=== PATIENT | male | born 1965 | race Caucasian/White ===

== ENCOUNTER → 2017-09-10 | Outpatient (CLI) | payer BC ==
--- NOTE | 2017-09-10 11:28 | FL ---
Modified barium swallow. HISTORY: Dysphagia. Modified barium swallow was performed with the department of speech pathology. The patient was prese nted with various consistencies of barium. There is no evidence for aspiration or penetration. Full report is to follow from the department of speech pathology. Impression: Normal study.
== END | disposition home or self-care (01) ==
LOC: RADFLMAIN 10:54
PROVIDERS: ATTEND Internal Medicine Gastroenterology
DX: R13.10 Dysphagia, unspecified (principal)
CPT/HCPCS: 74230

== ENCOUNTER → 2017-10-26 | Outpatient (CLI) | payer BC ==
--- NOTE | 2017-10-26 15:57 | CT ---
EXAMINATION TYPE: CT chest wo con DATE OF EXAM: 10/26/2017 COMPARISON: NONE HISTORY: Severe persistent asthma and cough CT DLP: 1100 mGycm, Automated exposure control for dose reduction was used. CONTRAST: None TECHNIQUE: Axial images were obtained at 1 mm thick sections at 10 mm intervals. This will limit po rtions of the examination which may not be visualized within the [id number]. Images were obtained in the prone and supine views. Supine views were obtained in both inspiration and expiration per the referring physician request. Some motion artifact due to respiratory motion is present on the expira tion views. FINDINGS: Portion of the thyroid visualized is normal. No suspicious lung nodules or focal infiltrat es are present. No enlarged mediastinal or hilar adenopathy is evident. The ascending aorta diameter at the level o f the main pulmonary artery is 3.3 cm. The main pulmonary artery diameter at the bifurcation is 2.9 cm. No suspicious infiltrates are evident. No obvious masses are evident. No bronchiectasis is evident. L nomi pavon appear clear. Limited CT sections are obtained through the upper abdomen. Abdomen is essentially unremarkable. IMPRESSIONS: 1. Normal High Resolution Chest CT. No significant change between prone and supine or inspiration and expiration imaging is evident.
== END | disposition home or self-care (01) ==
LOC: RADCTMAIN 14:35
PROVIDERS: ATTEND Internal Medicine
DX: J45.51 Severe persistent asthma with (acute) exacerbation (principal); R05 Cough
CPT/HCPCS: 71250

== ENCOUNTER 2019-03-31 22:59 | Emergency (ER) | payer BC ==
[2019-03-31 23:04] VITALS: BP 167/93; PULSE 78; RESP 16; TEMP 97.5
[2019-03-31] MEDS ORDERED: LIDOCAINE VISCOUS 2% 15 ML CUP MUCOUS MEM ONE (23:52)
--- NOTE | 2019-04-01 00:36 | ED ---
General Adult HPI - General Chief complaint: Skin/Abscess/Foreign Body Stated complaint: Food stuck in throat Time Seen by Provider: 03/31/19 23:18 Source: patient Mode of arrival: ambulatory Limitations: no limitations - History of Present Illness Initial comments: Patient is a 53-year-old male presents emergency Department with a chief complaint of a daly pit stuck in his throat. Patient reports eating a daly half Hour ago when he swallowed the patient and complains of a discomfort in his throat. Patient reports he is able to swallow liquids without problems. Patient denies pain, changes in voice, drooling, dyspnea or dysphagia. Patient denies chest pain, chest tightness, shortness of breath, nausea, vomiting. - Related Data Home Medications Medication Instructions Recorded Confirmed ALPRAZolam [Xanax] 0.5 mg PO TID PRN 08/14/17 03/31/19 Tadalafil [Cialis] 5 mg PO ONCE PRN 08/14/17 03/31/19 Ciclesonide [Alvesco] 1 puff INHALATION RT-BID 03/31/19 03/31/19 Fluticasone Propionate [Flovent 1 puff INHALATION RT-DAILY 03/31/19 03/31/19 Hfa 44 mcg] Losartan Potassium 50 mg PO DAILY 03/31/19 03/31/19 Tiotropium [place] [Spiriva] 1 cap INHALATION RT-DAILY 03/31/19 03/31/19 amLODIPine [Norvasc] 5 mg PO DAILY 03/31/19 03/31/19 Allergies Allergy/AdvReac Type Severity Reaction Status Date / Time No Known Allergies Allergy Verified 03/31/19 23:29 Review of Systems ROS Statement: Those systems with pertinent positive or pertinent negative responses have been documented in the HPI. ROS Other: All systems not noted in ROS Statement are negative. Past Medical History Past Medical History: Asthma, GERD/Reflux Additional Past Medical History / Comment(s): "feels like things get stuck in my throat" History of Any Multi-Drug Resistant Organisms: None Reported Past Surgical History: Orthopedic Surgery Additional Past Surgical History / Comment(s): knee Past Anesthesia/Blood Transfusion Reactions: No Reported Reaction Past Psychological History: Anxiety Smoking Status: Former smoker - Past Family History Mother Family Medical History: No Reported History General Exam - General Exam Comments Initial Comments: General: Well-developed well-nourished distress HEENT: Normocephalic/atraumatic, PERLL, pharynx erythema, swallowing well, EAC no erythema, no exudates, TM clear, no cervical lymph nodes, unable to visualize foreign bodies in the oropharynx. Neck: Supple, nontender, trachea midline Chest/Lungs: Normal respirations, no signs of respiratory distress clear to auscultation bilaterally no wheezes, rales, rhonchi Cardiac: Regular rate and rhythm, normal S1-S2, no murmurs rubs or gallops Abdomen/GI: Soft nontender, bowel sounds equal or quadrant x4, no guarding, no rebound no CVA tenderness Musculoskeletal: Nontender, full range of motion, no edema, strength equal bilaterally Skin: Warmth, no rashes or lesions, no cyanosis or diaphoresis Neurologic: AAO x 3, CN 2-12 intact, Psychiatric: Mood and affect normal, judgment normal Limitations: no limitations Course Vital Signs 03/31/19 23:00 Temperature 97.5 F L Pulse Rate 78 Respiratory 16 Rate Blood Pressure 167/93 O2 Sat by Pulse 99 Oximetry Medical Decision Making - Medical Decision Making Patient is a 53-year-old male presenting to emergency Department with a chief complaint of swallowing a tree.. I was unable to detect the foreign body on physical examination. Patient is able to swallow liquids and food. Abdomen the patient drink water and eat applesauce without issues. On physical examination patient does not have any wheezing bilaterally. Patient denies any dyspnea cough or shortness of breath. Patient was offered viscous lidocaine but declined. At this point patient will be discharged and advised to follow up with GI for foreign body removal. I suspect the foreign body to be in the esophagus at this point. Strict return parameters were thoroughly discussed with patient was understanding and agreeable. Case discussed with physician. Disposition Clinical Impression: Swallowed foreign body Disposition: HOME SELF-CARE Condition: Stable Instructions (If sedation given, give patient instructions): Esophageal Foreign Body (ED) Additional Instructions: Please follow with the GI specialist. Please return to emergency department if symptoms worsen. Is patient prescribed a controlled substance at d/c from ED?: No Referrals: Blayne Tinoco MD [Primary Care Provider] - 1-2 days Mary Marti MD [STAFF PHYSICIAN] - 1-2 days Time of Disposition: 00:59
== END 2019-04-01 01:20 | disposition home or self-care (01) ==
LOC: EC 22:59
DX: T17.228A Food in pharynx causing other injury, initial encounter (principal); J45.909 Unspecified asthma, uncomplicated; Z87.891 Personal history of nicotine dependence; Z53.29 Procedure and treatment not carried out because of patient's decision for other reasons; Z79.51 Long term (current) use of inhaled steroids; Z79.899 Other long term (current) drug therapy
CPT/HCPCS: 99283

== ENCOUNTER 2020-01-09 03:30 | Emergency (ER) | payer BC ==
[2020-01-09 03:35] VITALS: RESP 18; TEMP 97.7
--- NOTE | 2020-01-09 03:48 | ED ---
Chest Pain HPI - General Chief Complaint: Chest Pain Stated Complaint: Chest Pain Time Seen by Provider: 01/09/20 03:46 Source: patient, EMS Mode of arrival: EMS Limitations: no limitations - History of Present Illness Initial Comments: This patient is 54-year-old man who presents to be evaluated for chest pain. The patient states that it initially had started around 10 PM when he lifted a chair. He has sharp pain in the upper chest. I he did take some Tylenol when the pain started. He states that after a bit of time it was better and he was able to go to sleep but then the pain woke him again. I'll and the pain recurred and was severe she called EMS to transport him here. MD Complaint: chest pain Onset/Timin -: hour(s) Onset: other Pain Location: substernal Pain Radiation: LUE Severity: severe Quality: sharp Consistency: intermittent Improves With: nothing Worsens With: nothing Treatments Prior to Arrival: none - Related Data On Oral Contraceptives: No Home Medications Medication Instructions Recorded Confirmed ALPRAZolam [Xanax] 0.5 mg PO TID PRN 08/14/17 03/31/19 Tadalafil [Cialis] 5 mg PO ONCE PRN 08/14/17 03/31/19 Ciclesonide [Alvesco] 1 puff INHALATION RT-BID 03/31/19 03/31/19 Fluticasone Propionate [Flovent 1 puff INHALATION RT-DAILY 03/31/19 03/31/19 Hfa 44 mcg] Losartan Potassium 50 mg PO DAILY 03/31/19 03/31/19 Tiotropium [place] [Spiriva] 1 cap INHALATION RT-DAILY 03/31/19 03/31/19 amLODIPine [Norvasc] 5 mg PO DAILY 03/31/19 03/31/19 Allergies Allergy/AdvReac Type Severity Reaction Status Date / Time No Known Allergies Allergy Verified 03/31/19 23:29 Review of Systems ROS Statement: Those systems with pertinent positive or pertinent negative responses have been documented in the HPI. ROS Other: All systems not noted in ROS Statement are negative. Constitutional: Denies: fever, chills Respiratory: Denies: cough, dyspnea Cardiovascular: Reports: as per HPI, chest pain. Denies: palpitations, orthopnea, edema, syncope Gastrointestinal: Denies: abdominal pain, nausea, vomiting Genitourinary: Denies: dysuria, hematuria Musculoskeletal: Denies: back pain Skin: Denies: rash Neurological: Denies: headache, weakness, numbness EKG Findings - EKG Results: EKG: interpreted by DORIAN CASAS, sinus rhythm (Rate 79 bpm), normal axis, normal QRS, normal ST/T - IN, Pacemaker, Normal: Normal tracing: normal tracing Past Medical History Past Medical History: Asthma, GERD/Reflux Additional Past Medical History / Comment(s): "feels like things get stuck in my throat" History of Any Multi-Drug Resistant Organisms: None Reported Past Surgical History: Orthopedic Surgery Additional Past Surgical History / Comment(s): knee Past Anesthesia/Blood Transfusion Reactions: No Reported Reaction Past Psychological History: Anxiety Smoking Status: Former smoker Past Alcohol Use History: None Reported Past Drug Use History: None Reported - Past Family History Mother Family Medical History: No Reported History General Exam Limitations: no limitations General appearance: alert, in no apparent distress Head exam: Present: atraumatic, normocephalic Eye exam: Present: normal appearance. Absent: scleral icterus, conjunctival injection ENT exam: Present: normal oropharynx Neck exam: Present: normal inspection Respiratory exam: Present: normal lung sounds bilaterally. Absent: respiratory distress, wheezes, rales, rhonchi, stridor Cardiovascular Exam: Present: regular rate, normal rhythm, normal heart sounds. Absent: systolic murmur, diastolic murmur, rubs, gallop GI/Abdominal exam: Present: soft. Absent: distended, tenderness, guarding, rebound, rigid, mass Extremities exam: Present: normal inspection, normal capillary refill. Absent: pedal edema, calf tenderness Back exam: Present: normal inspection. Absent: CVA tenderness (R), CVA tenderness (L) Neurological exam: Present: alert Skin exam: Present: warm, dry, intact, normal color. Absent: rash Course Vital Signs 01/09/20 01/09/20 01/09/20 03:32 03:34 03:35 Temperature 97.7 F Pulse Rate 76 Pulse Rate [ 80 Photoflash Powder Mixer ] Respiratory 18 Rate Blood Pressure 150/63 O2 Sat by Pulse 98 100 Oximetry 01/09/20 01/09/20 01/09/20 04:30 05:00 05:30 Temperature Pulse Rate 71 71 61 Pulse Rate [ Photoflash Powder Mixer ] Respiratory 18 18 18 Rate Blood Pressure 119/82 118/76 136/73 O2 Sat by Pulse 98 97 97 Oximetry 01/09/20 01/09/20 06:00 06:30 Temperature Pulse Rate 65 68 Pulse Rate [ Photoflash Powder Mixer ] Respiratory 18 18 Rate Blood Pressure 139/68 127/74 O2 Sat by Pulse 98 98 Oximetry Chest Pain MDM - MDM Patient's 54-year-old man presenting to be evaluated for chest pain that did have some typical features though also atypical. I did recommend admission for serial cardiac enzymes, telemetry monitoring, and cardiology consultation, the patient was concerned as he did have young daughters at home. He did agree to stay for 2 sets of cardiac enzymes and agrees to follow-up to have cardiology consultation. He understands he needs to return should chest pain recur or should any other symptoms develop or should he not feel well in anyway. Disposition Clinical Impression: Chest pain Disposition: HOME SELF-CARE Condition: Fair Instructions (If sedation given, give patient instructions): Chest Pain (ED) Is patient prescribed a controlled substance at d/c from ED?: No Referrals: Blayne Tinoco MD [Primary Care Provider] - 1-2 days
[2020-01-09 03:50] LABS: Basophils % (A) 0 %; Eosinophils # (A) 0.1 k/uL (0-0.7); Eosinophils % (A) 2 %; HCT 42.6 % (39.0-53.0); HGB 13.8 gm/dL (13.0-17.5); Lymphocytes # (A) 2.1 k/uL (1.0-4.8); Lymphocytes % (A) 31 %; MCH 30.5 pg (25.0-35.0); MCHC 32.3 g/dL (31.0-37.0); MCV 94.3 fL (80.0-100.0); Mean Platelet Volume 7.5; Monocytes # (A) 0.4 k/uL (0-1.0); Monocytes % (A) 6 %; Neutrophils # (A) 3.8 k/uL (1.3-7.7); Neutrophils % (A) 57 %; Platelet Count 268 k/uL (150-450); RBC 4.51 m/uL (4.30-5.90); RDW 12.9 % (11.5-15.5); WBC 6.7 k/uL (3.8-10.6)
[2020-01-09 04:03] LABS: ALT 48 U/L (4-49); AST 44 U/L (17-59); African American GFR (CKD) >90 (>60 ml/min/1.73 sqM); Albumin 4.5 g/dL (3.5-5.0); Alkaline Phosphatase 66 U/L (38-126); Anion Gap 6 mmol/L; Blood Urea Nitrogen 18 mg/dL (9-20); Calcium 9.4 mg/dL (8.4-10.2); Carbon Dioxide 27 mmol/L (22-30); Chloride 104 mmol/L (98-107); Glucose 113 mg/dL (74-99); Magnesium 2.2 mg/dL (1.6-2.3); Non-African American GFR(CKD) >90 (>60 ml/min/1.73 sqM); Potassium 4.2 mmol/L (3.5-5.1); Sodium 137 mmol/L (137-145); Total Bilirubin 0.4 mg/dL (0.2-1.3); Total Protein 7.4 g/dL (6.3-8.2)
--- NOTE | 2020-01-09 04:05 | XR ---
EXAMINATION TYPE: XR chest 2V DATE OF EXAM: 01/09/2020 COMPARISON: October 02, 2017 HISTORY: Chest pain. Cough. TECHNIQUE: FINDINGS: Heart and mediastinum are normal. Lungs are clear. Diaphragm is normal. Bony thorax appears normal. There are chest leads. IMPRESSION: Normal chest. No change.
[2020-01-09] MEDS ORDERED: MAG HYDROX/AL HYDROX/SIMETH 30 ML, HYOSCYAMINE ELIXIR 10 ML, LIDOCAINE VISCOUS 2% 10 ML PO STA ×3 (04:14)
[2020-01-09 04:15] LABS: Prothrombin Time 10.3 sec (9.0-12.0)
[2020-01-09 04:18] LABS: Partial Thromboplastin Time 21.5 sec (22.0-30.0)
[2020-01-09 06:41] VITALS: BP 127/74; PULSE 68
== END 2020-01-09 07:57 | disposition home or self-care (01) ==
LOC: EC 03:30
DX: R07.9 Chest pain, unspecified (principal); J45.909 Unspecified asthma, uncomplicated; Z87.891 Personal history of nicotine dependence; Z79.51 Long term (current) use of inhaled steroids
CPT/HCPCS: 36415; 71046; 80053; 83735; 84484; 85025; 85610; 85730; 93005; 99285

== ENCOUNTER → 2020-02-13 | Outpatient (CLI) | payer BC ==
--- NOTE | 2020-02-14 07:30 | XR ---
EXAMINATION TYPE: XR foot complete RT DATE OF EXAM: 02/13/2020 CLINICAL HISTORY: pain TECHNIQUE: Frontal, lateral and oblique images of the right foot are obtained. COMPARISON: None. FINDINGS: There is no acute fracture/dislocation evident. The joint spaces appear within normal villaseñor its. The overlying soft tissue appears unremarkable. IMPRESSION: There is no acute fracture or dislocation. ICD 10 NO FRACTURE, INITIAL EVALUATION
--- NOTE | 2020-02-14 07:31 | XR ---
EXAMINATION TYPE: XR hand complete bilateral DATE OF EXAM: 02/13/2020 CLINICAL HISTORY: pain TECHNIQUE: Frontal, lateral and oblique images of the right hand are obtained. COMPARISON: None. FINDINGS: There is no acute fracture/dislocation evident. The joint spaces appear within normal limi ts. The overlying soft tissue appears unremarkable. IMPRESSION: There is no acute fracture or dislocation ICD 10 NO FRACTURE, INITIAL EVALUATION EXAMINATION TYPE: XR hand complete bilateral DATE OF EXAM: 02/13/2020 CLINICAL HISTORY: pain TECHNIQUE: Frontal, lateral and oblique images of the left hand are obtained. COMPARISON: None. FINDINGS: There is no acute fracture/dislocation evident. The joint spaces appear within normal limi ts. The overlying soft tissue appears unremarkable. IMPRESSION: There is no acute fracture or dislocation. ICD 10 NO FRACTURE, INITIAL EVALUATION
== END | disposition home or self-care (01) ==
LOC: RADXRMAIN 17:18
PROVIDERS: ATTEND Internal Medicine
DX: M79.671 Pain in right foot (principal); M19.90 Unspecified osteoarthritis, unspecified site

== ENCOUNTER → 2020-07-23 | Outpatient (CLI) | payer BC | END | disposition home or self-care (01) | LOC: LABWHC1 14:20 | PROVIDERS: ATTEND Internal Medicine | DX: Z20.828 Contact with and (suspected) exposure to other viral communicable diseases (principal) | CPT/HCPCS: U0003; C9803 ==

== ENCOUNTER → 2020-12-05 | Outpatient (CLI) | payer BC ==
--- NOTE | 2020-12-06 05:25 | MR ---
EXAMINATION TYPE: MR foot RT wo/w con DATE OF EXAM: 12/05/2020 COMPARISON: HISTORY: Pain in right foot, swelling on ball of right foot, now mass like ball. CONTRAST: Standard multiplanar, multisequence MRI departmental protocol utilizing 10 mL intravenous Gadavist ga dolinium contrast. There is a rounded oval-shaped fluid signal mass at the plantar aspect of the first MP joint. This me asures 15 x 13 x 4 mm and is consistent with a synovial cyst. The metatarsals are intact. There is no evidence of a fracture. The toes appear intact. There is ria r spurring at the first MP joint. Flexor tendons of the foot appear intact. IMPRESSION: Subcutaneous fluid signal mass at the plantar aspect of the first MP joint is consistent with a synov ial cyst. 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 No fracture seen. There is a mild effusion of the first MP joint also.
== END | disposition home or self-care (01) ==
LOC: RADMRIMAIN 08:00
PROVIDERS: ATTEND Internal Medicine
DX: M19.071 Primary osteoarthritis, right ankle and foot (principal); M25.474 Effusion, right foot
CPT/HCPCS: 73720; A9585

== ENCOUNTER → 2021-07-19 | Outpatient (CLI) | payer BC ==
--- NOTE | 2021-07-19 09:15 | CT ---
EXAMINATION TYPE: CT sinus wo con DATE OF EXAM: 07/19/2021 COMPARISON: Prior sinus CT June 24, 2017 HISTORY: Chronic sinusitis, recurrent sinus infections per patient. CT DLP: 588 mGycm. Automated Exposure Control for Dose Reduction was Utilized. TECHNIQUE: CT scan of the sinuses is performed without contrast, axial images are obtained, coronal r eformatted images are also reviewed. FINDINGS: The paranasal sinuses including the frontal, ethmoid, sphenoid, and maxillary sinuses bila terally are well-aerated without suspicious opacification or air-fluid levels. The ostiomeatal compl ex is patent bilaterally on the coronal images. Nasal septum is stable and slightly deviated to left of midline. Visualized portion of mastoid air cells show no abnormal opacification. The globes are intact bilate rally. Visualized brain parenchyma is unremarkable. IMPRESSION: The sinuses are clear, no significant change from prior.
== END | disposition home or self-care (01) ==
LOC: RADCTMAIN 08:36
PROVIDERS: ATTEND Otolaryngology
DX: J32.9 Chronic sinusitis, unspecified (principal)
CPT/HCPCS: 70486

== ENCOUNTER → 2021-11-28 | Outpatient (CLI) | payer BC ==
--- NOTE | 2021-11-28 11:13 | XR ---
KUB HISTORY: Microscopic hematuria Frontal KUB on 2 images, comparison previous exams KUB and CT 10/17/2015 Retained fecal debris could obscure underlying detail. No evident bowel obstruction or pneumoperitone um. No evident pathologic calcification. Degenerative disc changes are present in the visualized spin e. Lung bases are clear. IMPRESSION: Correlate for fecal stasis.
== END | disposition home or self-care (01) ==
LOC: RADXRMAIN 10:26
PROVIDERS: ATTEND Internal Medicine
DX: R31.29 Other microscopic hematuria (principal)
CPT/HCPCS: 74018

== ENCOUNTER → 2022-12-25 | Outpatient (CLI) | payer BC ==
--- NOTE | 2022-12-25 07:58 | CT ---
EXAMINATION TYPE: CT sinus wo con DATE OF EXAM: 12/25/2022 COMPARISON: 12/25/2022 HISTORY: Chronic sinusitis CT DLP: 583.[address] of the paranasal sinuses was performed in the axial and coronal planes. Bone and soft tissue settings are submitted. The paranasal sinuses demonstrate normal aeration and development. The paranasal sinuses are free of mucosal thickening or air fluid level. The osteal meatal units are patent bilaterally. The nasal septum is midline. No bony destructive changes are seen within the field of view. IMPRESSION: Normal unenhanced CT of the paranasal sinuses.
--- NOTE | 2022-12-25 08:17 | CT ---
EXAMINATION TYPE: CT iac wo con DATE OF EXAM: 12/25/2022 COMPARISON: None HISTORY: Chronic sinus infections CT DLP: 150mGycm Automated exposure control for dose reduction was used. FINDINGS: The external auditory canals are patent bilaterally. Mastoid air cells show no evidence of abnormal opacification bilaterally. The middle ear ossicles are symmetric and unremarkable. There is no evidence of suspicious surrounding soft tissue density to suggest cholesteatoma. The scutum is preserved bilaterally. The cochlea and the semicircular canals are symmetric and unremarkable. Ves tibular aqueduct and internal carotid canal appear unremarkable. Temporomandibular joints are mainta ined bilaterally. IMPRESSION: No significant abnormality seen to account for patient's symptoms.
== END | disposition home or self-care (01) ==
LOC: RADCTMAIN 07:21
PROVIDERS: ATTEND Otolaryngology
DX: J32.9 Chronic sinusitis, unspecified (principal); H92.03 Otalgia, bilateral
CPT/HCPCS: 70480; 70486

== ENCOUNTER 2023-07-31 19:50 | Emergency (ER) | payer BC ==
[2023-07-31 20:38] VITALS: TEMP 98.2
[2023-07-31 21:19] LABS: Basophils % (A) 1 %; Eosinophils # (A) 0.1 k/uL (0-0.7); Eosinophils % (A) 2 %; HCT 41.5 % (39.0-53.0); HGB 13.8 gm/dL (13.0-17.5); Lymphocytes # (A) 2.2 k/uL (1.0-4.8); Lymphocytes % (A) 31 %; MCH 31.6 pg (25.0-35.0); MCHC 33.2 g/dL (31.0-37.0); MCV 95.1 fL (80.0-100.0); Mean Platelet Volume 7.3; Monocytes # (A) 0.6 k/uL (0-1.0); Monocytes % (A) 8 %; Neutrophils # (A) 3.9 k/uL (1.3-7.7); Neutrophils % (A) 56 %; Platelet Count 318 k/uL (150-450); RBC 4.36 m/uL (4.30-5.90); RDW 12.5 % (11.5-15.5); WBC 6.9 k/uL (3.8-10.6)
[2023-07-31 21:26] LABS: ALT 21 U/L (4-49); AST 27 U/L (17-59); African American GFR (CKD) >90 (>60 ml/min/1.73 sqM); Albumin 4.4 g/dL (3.5-5.0); Alkaline Phosphatase 54 U/L (38-126); Amylase 77 U/L (30-110); Anion Gap 8 mmol/L; Blood Urea Nitrogen 22 mg/dL (9-20); Calcium 9.3 mg/dL (8.4-10.2); Carbon Dioxide 26 mmol/L (22-30); Chloride 103 mmol/L (98-107); Glucose 81 mg/dL (74-99); Lipase 130 U/L (23-300); Non-African American GFR(CKD) 88 (>60 ml/min/1.73 sqM); Potassium 3.9 mmol/L (3.5-5.1); Sodium 137 mmol/L (137-145); Total Bilirubin 0.6 mg/dL (0.2-1.3); Total Protein 7.1 g/dL (6.3-8.2)
[2023-07-31 22:19] LABS: Bacteria,Urine Rare /hpf; Mucus,Urine Few /hpf; RBC,Urine 2 /hpf (0-5); WBC,Urine <1 /hpf (0-5)
[2023-07-31 22:20] LABS: Color,Urine Yellow
[2023-07-31 22:21] LABS: Appearance,Urine Clear (Clear)
[2023-07-31 22:27] LABS: PH, Urine 6.5 (5.0-8.0); Protein,Urine Trace (Negative); Specific Gravity,Urine 1.029 (1.001-1.035)
[2023-07-31 22:28] LABS: Bilirubin,Urine Negative (Negative); Blood,Urine Negative (Negative); Glucose,Urine (UA) Negative (Negative); Ketones,Urine Trace (Negative); Nitrite,Urine Negative (Negative)
[2023-07-31 22:29] LABS: Leukocyte Esterase,Urine Negative (Negative)
--- NOTE | 2023-07-31 22:30 | ED ---
Abdominal Pain HPI - General Chief Complaint: Abdominal Pain Stated Complaint: Abd pain Time Seen by Provider: 07/31/23 22:33 Source: patient Mode of arrival: ambulatory Limitations: no limitations - History of Present Illness Initial Comments: 57-year-old male presenting to the ED with a chief complaint of abdominal pain. Patient states the day after Thanksgiving started to experience bloating abdominal pain. States bleeding has improved however states ongoing pain in the left lower abdomen. Says PCP yesterday who gave him a prescription for Pant oprazole and despite this states ongoing symptoms. No changes in bowel or bladder habits. No chest pain or shortness of breath. No other complaints. - Related Data Home Medications Medication Instructions Recorded Confirmed ALPRAZolam [Xanax] 0.5 mg PO TID PRN 08/14/17 03/31/19 tadalafiL [Cialis] 5 mg PO ONCE PRN 08/14/17 03/31/19 Ciclesonide [Alvesco] 1 puff INHALATION RT-BID 03/31/19 03/31/19 Fluticasone Propionate [Flovent 1 puff INHALATION RT-DAILY 03/31/19 03/31/19 Hfa 44 mcg] Losartan Potassium 50 mg PO DAILY 03/31/19 03/31/19 Tiotropium [place] [Spiriva] 1 cap INHALATION RT-DAILY 03/31/19 03/31/19 amLODIPine [Norvasc] 5 mg PO DAILY 03/31/19 03/31/19 Allergies Allergy/AdvReac Type Severity Reaction Status Date / Time doxycycline Allergy Rash/Hives Verified 07/31/23 20:39 Review of Systems ROS Statement: Those systems with pertinent positive or pertinent negative responses have been documented in the HPI. ROS Other: All systems not noted in ROS Statement are negative. Past Medical History Past Medical History: Asthma, GERD/Reflux Additional Past Medical History / Comment(s): "feels like things get stuck in my throat" History of Any Multi-Drug Resistant Organisms: None Reported Past Surgical History: Orthopedic Surgery Additional Past Surgical History / Comment(s): knee Past Anesthesia/Blood Transfusion Reactions: No Reported Reaction Past Psychological History: Anxiety Smoking Status: Never smoker Past Alcohol Use History: None Reported Past Drug Use History: None Reported - Past Family History Mother Family Medical History: No Reported History General Exam Limitations: no limitations General appearance: alert, in no apparent distress Eye exam: Present: normal appearance Neck exam: Present: normal inspection Respiratory exam: Present: normal lung sounds bilaterally Cardiovascular Exam: Present: regular rate, normal rhythm GI/Abdominal exam: Present: soft Extremities exam: Present: normal inspection Back exam: Present: normal inspection Neurological exam: Present: alert, oriented X3 Skin exam: Present: warm, dry Course Vital Signs 07/31/23 20:36 Temperature 98.2 F Pulse Rate 83 Respiratory 18 Rate Blood Pressure 159/89 O2 Sat by Pulse 99 Oximetry Medical Decision Making - Medical Decision Making Was pt. sent in by a medical professional or institution (, PA, HEALTH CLAIMS EXAMINER, urgent care, hospital, or long term...) When possible be specific @ -No Did you speak to anyone other than the patient for history (EMS, parent, family, police, friend...)? What history was obtained from this source @ -No Did you review nursing and triage notes (agree or disagree)? Why? @ -I reviewed and agree with nursing and triage notes Were old charts reviewed (outside hosp., previous admission, EMS record, old EKG, old radiological studies, urgent care reports/EKG's, long term records)? Report findings @ -No old charts were reviewed Differential Diagnosis (chest pain, altered mental status, abdominal pain women, abdominal pain men, vaginal bleeding, weakness, fever, dyspnea, syncope, headache, dizziness, GI bleed, back pain, seizure, CVA, palpatations, mental health, musculoskeletal)? @ -Differential Abdominal Pain Men: Appendicitis, cholecystitis, diverticulosis, ischemic bowel, pancreatitis, hepatitis, UTI, gastroenteritis, AAA, incarcerated hernia, bowel obstruction, constipation, inflammatory bowel, hepatitis, peptic ulcer disease, splenic infarction, perforated viscus, testicular torsion, this is not meant to be an all-inclusive list EKG interpreted by me (3pts min.). @ -None X-rays interpreted by me (1pt min.). @ -None done CT interpreted by me (1pt min.). @ -CT abdomen and pelvis interpreted me shows no acute finding. U/S interpreted by me (1pt. min.). @ -None done What testing was considered but not performed or refused? (CT, X-rays, U/S, labs)? Why? @ -None What meds were considered but not given or refused? Why? @ -None Did you discuss the management of the patient with other professionals (professionals i.e. DrDanielle, PA, HEALTH CLAIMS EXAMINER, lab, RT, psych nurse, director of social work, political theory professor, teacher, medical laboratory technical officer, lining caser)? Give summary @ -No Was smoking cessation discussed for >3mins.? @ -No Was critical care preformed (if so, how long)? @ -No Were there social determinants of health that impacted care today? How? (Ho melessness, low income, unemployed, alcoholism, drug addiction, transportation, low edu. Level, literacy, decrease access to med. care, longterm, rehab)? @ -No Was there de-escalation of care discussed even if they declined (Discuss DNR or withdrawal of care, Hospice)? DNR status @ -No What co-morbidities impacted this encounter? (DM, HTN, Smoking, COPD, CAD, Cancer, CVA, ARF, Chemo, Hep., AIDS, mental health diagnosis, sleep apnea, morbid obesity)? @ -None Was patient admitted / discharged? Hospital course, mention meds given and route, prescriptions, significant lab abnormalities, going to OR and other pertinent info. @ -Discharge 57-year-old male presenting to the ED with the chief complaint of abdominal pain. Laboratory studies reviewed. CBC, chemistry panel, UA, amylase, lipase unremarkable. CT abdomen and pelvis showed no acute findings. At this time vital signs stable afebrile. Patient discharged home in stable condition. Provided referral to see GI. Discussed return precautions patient verbalizes agreement. Undiagnosed new problem with uncertain prognosis? @ -No Drug Therapy requiring intensive monitoring for toxicity (Heparin, Nitro, Insulin, Cardizem)? @ -No Were any procedures done? @ -No Diagnosis/symptom? @ -Abdominal pain Acute, or Chronic, or Acute on Chronic? @ -Acute Uncomplicated (without systemic symptoms) or Complicated (systemic symptoms)? @ -Uncomplicated Side effects of treatment? @ -No Exacerbation, Progression, or Severe Exacerbation? @ -No Poses a threat to life or bodily function? How? (Chest pain, [place], [place], pneumonia, PE, COPD, DKA, ARF, appy, cholecystitis, CVA, Diverticulitis, Homicidal, Suicidal, threat to staff... and all critical care pts) @ -No - Lab Data Result diagrams: 07/31/23 21:00 07/31/23 21:00 Lab Results 07/31/23 07/31/23 07/31/23 Range/Units 21:00 21:00 21:00 WBC 6.9 (3.8-10.6) k/uL RBC 4.36 (4.30-5.90) m/uL Hgb 13.8 (13.0-17.5) gm/dL Hct 41.5 (39.0-53.0) % MCV 95.1 (80.0-100.0) fL MCH 31.6 (25.0-35.0) pg MCHC 33.2 (31.0-37.0) g/dL RDW 12.5 (11.5-15.5) % Plt Count 318 (150-450) k/uL MPV 7.3 Neutrophils % 56 % Lymphocytes % 31 % Monocytes % 8 % Eosinophils % 2 % Basophils % 1 % Neutrophils # 3.9 (1.3-7.7) k/uL Lymphocytes # 2.2 (1.0-4.8) k/uL Monocytes # 0.6 (0-1.0) k/uL Eosinophils # 0.1 (0-0.7) k/uL Basophils # 0.0 (0-0.2) k/uL Sodium 137 (137-145) mmol/L Potassium 3.9 (3.5-5.1) mmol/L Chloride 103 (98-107) mmol/L Carbon Dioxide 26 (22-30) mmol/L Anion Gap 8 mmol/L BUN 22 H (9-20) mg/dL Creatinine 0.95 (0.66-1.25) mg/dL Est GFR (CKD-EPI)AfAm >90 (>60 ml/min/1.73 sqM) Est GFR (CKD-EPI)NonAf 88 (>60 ml/min/1.73 sqM) Glucose 81 (74-99) mg/dL Plasma Lactic Acid Christopher (0.7-2.0) mmol/L Calcium 9.3 (8.4-10.2) mg/dL Total Bilirubin 0.6 (0.2-1.3) mg/dL AST 27 (17-59) U/L ALT 21 (4-49) U/L Alkaline Phosphatase 54 (38-126) U/L Total Protein 7.1 (6.3-8.2) g/dL Albumin 4.4 (3.5-5.0) g/dL Amylase 77 (30-110) U/L Lipase 130 (23-300) U/L Urine Color Yellow Urine Appearance Clear (Clear) Urine pH 6.5 (5.0-8.0) Ur Specific [place] 1.029 (1.001-1.035) Urine Protein Trace H (Negative) Urine Glucose (UA) Negative (Negative) Urine Ketones Trace (Negative) Urine Blood Negative (Negative) Urine Nitrite Negative (Negative) Urine Bilirubin Negative (Negative) Urine Urobilinogen 2.0 (<2.0) mg/dL Ur Leukocyte Esterase Negative (Negative) Urine RBC 2 (0-5) /hpf Urine WBC <1 (0-5) /hpf Urine Bacteria Rare H (None) /hpf Urine Mucus Few H (None) /hpf 07/31/23 Range/Units 21:00 WBC (3.8-10.6) k/uL RBC (4.30-5.90) m/uL Hgb (13.0-17.5) gm/dL Hct (39.0-53.0) % MCV (80.0-100.0) fL MCH (25.0-35.0) pg MCHC (31.0-37.0) g/dL RDW (11.5-15.5) % Plt Count (150-450) k/uL MPV Neutrophils % % Lymphocytes % % Monocytes % % Eosinophils % % Basophils % % Neutrophils # (1.3-7.7) k/uL Lymphocytes # (1.0-4.8) k/uL Monocytes # (0-1.0) k/uL Eosinophils # (0-0.7) k/uL Basophils # (0-0.2) k/uL Sodium (137-145) mmol/L Potassium (3.5-5.1) mmol/L Chloride (98-107) mmol/L Carbon Dioxide (22-30) mmol/L Anion Gap mmol/L BUN (9-20) mg/dL Creatinine (0.66-1.25) mg/dL Est GFR (CKD-EPI)AfAm (>60 ml/min/1.73 sqM) Est GFR (CKD-EPI)NonAf (>60 ml/min/1.73 sqM) Glucose (74-99) mg/dL Plasma Lactic Acid Christopher 0.8 (0.7-2.0) mmol/L Calcium (8.4-10.2) mg/dL Total Bilirubin (0.2-1.3) mg/dL AST (17-59) U/L ALT (4-49) U/L Alkaline Phosphatase (38-126) U/L Total Protein (6.3-8.2) g/dL Albumin (3.5-5.0) g/dL Amylase (30-110) U/L Lipase (23-300) U/L Urine Color Urine Appearance (Clear) Urine pH (5.0-8.0) Ur Specific [place] (1.001-1.035) Urine Protein (Negative) Urine Glucose (UA) (Negative) Urine Ketones (Negative) Urine Blood (Negative) Urine Nitrite (Negative) Urine Bilirubin (Negative) Urine Urobilinogen (<2.0) mg/dL Ur Leukocyte Esterase (Negative) Urine RBC (0-5) /hpf Urine WBC (0-5) /hpf Urine Bacteria (None) /hpf Urine Mucus (None) /hpf Disposition Clinical Impression: Abdominal pain Disposition: HOME SELF-CARE Condition: Good Instructions (If sedation given, give patient instructions): Abdominal Pain (ED) Additional Instructions: Please return to the Emergency Department if symptoms worsen or any other concerns. Follow up with your primary care provider and/or with GI. Is patient prescribed a controlled substance at d/c from ED?: No Referrals: Claire Haley MD [Primary Care Provider] - 1-2 days Mary Marti MD [STAFF PHYSICIAN] - 1-2 days Time of Disposition: 01:07
[2023-07-31] MEDS ORDERED: KETOROLAC 15 MG/ML 1 ML VIAL IVP STA (23:57)
--- NOTE | 2023-08-01 00:22 | CT ---
EXAM: CT Abdomen and Pelvis With Intravenous Contrast CLINICAL HISTORY: ITS.REASON CT Reason: LLQ pain TECHNIQUE: Axial computed tomography images of the abdomen and pelvis with intravenous contrast. CTDI is 18 mGy and DLP is 952.9 mGy-cm. This CT exam was performed using one or more of the following dose reduction techniques: automated exposure control, adjustment of the mA and/or kV according to patient size, and/or use of iterative reconstruction technique. COMPARISON: No relevant prior studies available. FINDINGS: Lung bases: Unremarkable. No mass. No consolidation. ABDOMEN: Liver: Unremarkable. No focal hepatic lesion. Gallbladder and bile ducts: Unremarkable. No calcified stones. No ductal dilation. Pancreas: Unremarkable. No mass. No ductal dilation. Spleen: Unremarkable. No splenomegaly. Adrenals: Unremarkable. No mass. Kidneys and ureters: Unremarkable. No hydronephrosis or delayed nephrogram. Stomach and bowel: Mild fecal retention, correlate for constipation. No small bowel obstruction. No mucosal thickening. PELVIS: Appendix: No findings to suggest acute appendicitis. Bladder: Unremarkable. No mass. Reproductive: Unremarkable as visualized. ABDOMEN and PELVIS: Intraperitoneal space: Unremarkable. No free air. No significant fluid collection. Bones/joints: Degenerative changes of the spine. No acute fracture. No dislocation. Soft tissues: Unremarkable. Vasculature: Atherosclerotic changes of the aorta. No abdominal aortic aneurysm. Lymph nodes: Unremarkable. No enlarged lymph nodes. IMPRESSION: Mild fecal retention, correlate for constipation. No small bowel obstruction.
[2023-08-01 01:44] VITALS: BP 145/74; PULSE 63; RESP 16
== END 2023-08-01 01:31 | disposition home or self-care (01) ==
LOC: EC 19:50
DX: R10.32 Left lower quadrant pain (principal); J45.909 Unspecified asthma, uncomplicated; Z79.51 Long term (current) use of inhaled steroids; Z88.8 Allergy status to other drugs, medicaments and biological substances; Z86.59 Personal history of other mental and behavioral disorders
CPT/HCPCS: 36415; 80053; 82150; 83605; 83690; 85025; 81003; 74177; 99284; 96374; J1885; Q9967

== ENCOUNTER 2024-02-07 14:43 | Emergency (ER) | payer BC ==
--- NOTE | 2024-02-07 15:20 | ED ---
Arrhythmia/Palpitations HPI - General Chief Complaint: Arrhythmia/Palpitations Stated Complaint: Hypertension Time Seen by Provider: 02/07/24 14:56 Source: patient Mode of arrival: ambulatory Limitations: no limitations - History of Present Illness Initial Comments: Patient is a 58-year-old man who presents with complaint that his heart is racing and beating irregularly. Patient states that things started this morning. He is also having for hot and cold feelings. The patient states that he feels he is dehydrated because he did drink a fair amount of alcohol last night. Patient denies history of arrhythmia. No chest pain, dyspnea, diaphoresis, nausea or vomiting. MD Complaint: rapid heart beat -: hour(s) Context: occurred during rest Associated Symptoms: denies other symptoms - Related Data Home Medications Medication Instructions Recorded Confirmed ALPRAZolam [Xanax] 0.5 mg PO TID PRN 08/14/17 03/31/19 tadalafiL [Cialis] 5 mg PO ONCE PRN 08/14/17 03/31/19 Ciclesonide [Alvesco] 1 puff INHALATION RT-BID 03/31/19 03/31/19 Fluticasone Propionate [Flovent 1 puff INHALATION RT-DAILY 03/31/19 03/31/19 Hfa 44 mcg] Losartan Potassium 50 mg PO DAILY 03/31/19 03/31/19 Tiotropium [place] [Spiriva] 1 cap INHALATION RT-DAILY 03/31/19 03/31/19 amLODIPine [Norvasc] 5 mg PO DAILY 03/31/19 03/31/19 Previous Rx's Medication Instructions Recorded Metoprolol Succinate [Metoprolol 25 mg PO DAILY #30 tab 02/10/24 Succinate ER] Allergies Allergy/AdvReac Type Severity Reaction Status Date / Time doxycycline Allergy Rash/Hives Verified 02/07/24 14:50 sulfamethoxazole Allergy Rash/Hives Verified 02/10/24 12:52 [From Bactrim] trimethoprim [From Bactrim] Allergy Rash/Hives Verified 02/10/24 12:52 Review of Systems ROS Statement: Those systems with pertinent positive or pertinent negative responses have been documented in the HPI. ROS Other: All systems not noted in ROS Statement are negative. Constitutional: Denies: fever, chills Respiratory: Denies: cough, dyspnea Cardiovascular: Reports: palpitations. Denies: chest pain, edema, syncope Gastrointestinal: Denies: abdominal pain, nausea, vomiting, diarrhea Genitourinary: Denies: dysuria, hematuria Musculoskeletal: Denies: back pain Skin: Denies: rash Neurological: Denies: headache, weakness Past Medical History Past Medical History: Asthma, GERD/Reflux Additional Past Medical History / Comment(s): "feels like things get stuck in my throat" History of Any Multi-Drug Resistant Organisms: None Reported Past Surgical History: Orthopedic Surgery Additional Past Surgical History / Comment(s): knee Past Anesthesia/Blood Transfusion Reactions: No Reported Reaction Past Psychological History: Anxiety Smoking Status: Never smoker Past Alcohol Use History: None Reported Past Drug Use History: None Reported - Past Family History Mother Family Medical History: No Reported History General Exam Limitations: no limitations General appearance: alert, in no apparent distress Head exam: Present: atraumatic, normocephalic Eye exam: Present: normal appearance. Absent: scleral icterus, conjunctival injection ENT exam: Present: mucous membranes dry Neck exam: Present: normal inspection Respiratory exam: Present: normal lung sounds bilaterally. Absent: respiratory distress, wheezes, rales, rhonchi, stridor, accessory muscle use Cardiovascular Exam: Present: tachycardia, irregular rhythm, normal heart sounds. Absent: systolic murmur, diastolic murmur, rubs, gallop GI/Abdominal exam: Present: soft. Absent: distended, tenderness, guarding, rebound, rigid, mass Extremities exam: Present: normal inspection, normal capillary refill. Absent: pedal edema, calf tenderness Back exam: Present: normal inspection. Absent: CVA tenderness (R), CVA tenderness (L) Neurological exam: Present: alert Skin exam: Present: warm, dry, intact, normal color. Absent: rash Course Vital Signs 02/07/24 02/07/24 02/07/24 14:46 15:35 16:07 Temperature 97.5 F L Pulse Rate 150 H 117 H 99 Respiratory 20 17 16 Rate Blood Pressure 166/84 142/96 142/87 O2 Sat by Pulse 100 98 99 Oximetry 02/07/24 02/07/24 17:10 17:35 Temperature 97.9 F Pulse Rate 95 88 Respiratory 17 18 Rate Blood Pressure 141/81 130/75 O2 Sat by Pulse 97 96 Oximetry EKG Findings - EKG Results: EKG: interpreted by ERMD, normal axis EKG shows: atrial fibrillation (At approximately 143 bpm) Medical Decision Making - Medical Decision Making Patient had chest x-ray that I interpreted as negative for acute infiltrate, pneumothorax, congestive heart failure. The patient noted that when he took his contact lens out of his right eye it felt like there may be something in his eye. He stated that he was not able to replace the lens today. He states that there is no change in his vision but there definitely is an irritated feeling. In light of this I did perform fluorescein stain and it does appear that there is a portion of contact lens that remains in the patient's eye. I did apply some irrigation that floated this off and it does appear to be approximately one third of a soft contact lens. The eye was again stained after removal of the lens and there is just a little bit of mild uptake over the sclera but not over the cornea. No evidence of corneal ulcer or other infection. The patient is advised not to wear contact lenses until there is no irritation or pain of the eye. He is to follow-up with ophthalmology in 1 days time if his eyes not back to normal. Was pt. sent in by a medical professional or institution (, PA, RESOURCE FORESTER, urgent care, hospital, or long-term...) When possible be specific @ -[No] Did you speak to anyone other than the patient for history (EMS, parent, family, police, friend...)? What history was obtained from this source @ -[No] Did you review nursing and triage notes (agree or disagree)? Why? @ -[I reviewed and agree with nursing and triage notes] Were old charts reviewed (outside hosp., previous admission, EMS record, old EKG, old radiological studies, urgent care reports/EKG's, long-term records)? Report findings @ -[No old charts were reviewed] Differential Diagnosis (chest pain, altered mental status, abdominal pain women, abdominal pain men, vaginal bleeding, weakness, fever, dyspnea, syncope, headache, dizziness, GI bleed, back pain, seizure, CVA, palpatations, mental health, musculoskeletal)? @ -[Differential Palpitations Ventricular arrhythmias, atrial arrhythmias, myocardial infarction, anemia, thyrotoxicosis, electrolyte imbalance, hypokalemia, pulmonary embolism, pulmonary disease, drugs, alcohol, anxiety, stress.... This is not meant to be an all-inclusive list. EKG interpreted by me (3pts min.). @ -[I interpreted as above] X-rays interpreted by me (1pt min.). @ -[I interpreted as above CT interpreted by me (1pt min.). @ -[None done] U/S interpreted by me (1pt. min.). @ -[None done] What testing was considered but not performed or refused? (CT, X-rays, U/S, labs)? Why? @ -[None] What meds were considered but not given or refused? Why? @ -[None] Did you discuss the management of the patient with other professionals (pr ofessionals i.e. , PA, RESOURCE FORESTER, lab, RT, psych nurse, social service coordinator, measurement specialist, teacher, welfare officer, case management social worker)? Give summary @ -[No] Was smoking cessation discussed for >3mins.? @ -[No] Was critical care preformed (if so, how long)? @ -[No] Were there social determinants of health that impacted care today? How? (Homelessness, low income, unemployed, alcoholism, drug addiction, transportation, low edu. Level, literacy, decrease access to med. care, residential, rehab)? @ -[No] Was there de-escalation of care discussed even if they declined (Discuss DNR or withdrawal of care, Hospice)? DNR status @ -[No] What co-morbidities impacted this encounter? (DM, HTN, Smoking, COPD, CAD, Cancer, CVA, ARF, Chemo, Hep., AIDS, mental health diagnosis, sleep apnea, morbid obesity)? @ -[None] Was patient admitted / discharged? Hospital course, mention meds given and route, prescriptions, significant lab abnormalities, going to OR and other pertinent info. @ -[See above Undiagnosed new problem with uncertain prognosis? @ -[No] Drug Therapy requiring intensive monitoring for toxicity (Heparin, Nitro, Insulin, Cardizem)? @ -[No] Were any procedures done? @ -[No] Diagnosis/symptom? @ -[Acute paroxysmal atrial fibrillation, resolved Acute foreign body eye, with removal of foreign body Acute, or Chronic, or Acute on Chronic? @ -Acute Uncomplicated (without systemic symptoms) or Complicated (systemic symptoms)? @ -[Uncomplicated Side effects of treatment? @ -[No] Exacerbation, Progression, or Severe Exacerbation? @ -[No] Poses a threat to life or bodily function? How? (Chest pain, [place], [place], pneumonia, PE, COPD, DKA, ARF, appy, cholecystitis, CVA, Diverticulitis, Homicidal, Suicidal, threat to staff... and all critical care pts) @ -[No] - Lab Data Result diagrams: 02/07/24 15:14 02/07/24 15:14 Lab Results 02/07/24 02/07/24 02/07/24 Range/Units 15:14 15:14 15:14 WBC 9.2 (3.8-10.6) k/uL RBC 5.12 (4.30-5.90) m/uL Hgb 15.7 (13.0-17.5) gm/dL Hct 48.2 (39.0-53.0) % MCV 94.1 (80.0-100.0) fL MCH 30.6 (25.0-35.0) pg MCHC 32.5 (31.0-37.0) g/dL RDW 13.7 (11.5-15.5) % Plt Count 355 (150-450) k/uL MPV 7.2 Neutrophils % 69 % Lymphocytes % 20 % Monocytes % 7 % Eosinophils % 1 % Basophils % 0 % Neutrophils # 6.4 (1.3-7.7) k/uL Lymphocytes # 1.9 (1.0-4.8) k/uL Monocytes # 0.6 (0-1.0) k/uL Eosinophils # 0.1 (0-0.7) k/uL Basophils # 0.0 (0-0.2) k/uL PT 9.7 L (10.0-12.5) sec INR 0.9 (<1.2) APTT 22.3 (22.0-30.0) sec Sodium 137 (137-145) mmol/L Potassium 4.2 (3.5-5.1) mmol/L Chloride 105 (98-107) mmol/L Carbon Dioxide 22 (22-30) mmol/L Anion Gap 10 mmol/L BUN 22 H (9-20) mg/dL Creatinine 0.81 (0.66-1.25) mg/dL Est GFR (CKD-EPI)AfAm >90 (>60 ml/min/1.73 sqM) Est GFR (CKD-EPI)NonAf >90 (>60 ml/min/1.73 sqM) Glucose 132 H (74-99) mg/dL Calcium 9.6 (8.4-10.2) mg/dL Magnesium 1.9 (1.6-2.3) mg/dL Total Bilirubin 0.8 (0.2-1.3) mg/dL AST 54 (17-59) U/L ALT 44 (4-49) U/L Alkaline Phosphatase 77 (38-126) U/L Troponin I (0.000-0.034) ng/mL Total Protein 8.0 (6.3-8.2) g/dL Albumin 5.2 H (3.5-5.0) g/dL TSH 0.315 L (0.465-4.680) mIU/L 02/07/24 Range/Units 15:14 WBC (3.8-10.6) k/uL RBC (4.30-5.90) m/uL Hgb (13.0-17.5) gm/dL Hct (39.0-53.0) % MCV (80.0-100.0) fL MCH (25.0-35.0) pg MCHC (31.0-37.0) g/dL RDW (11.5-15.5) % Plt Count (150-450) k/uL MPV Neutrophils % % Lymphocytes % % Monocytes % % Eosinophils % % Basophils % % Neutrophils # (1.3-7.7) k/uL Lymphocytes # (1.0-4.8) k/uL Monocytes # (0-1.0) k/uL Eosinophils # (0-0.7) k/uL Basophils # (0-0.2) k/uL PT (10.0-12.5) sec INR (<1.2) APTT (22.0-30.0) sec Sodium (137-145) mmol/L Potassium (3.5-5.1) mmol/L Chloride (98-107) mmol/L Carbon Dioxide (22-30) mmol/L Anion Gap mmol/L BUN (9-20) mg/dL Creatinine (0.66-1.25) mg/dL Est GFR (CKD-EPI)AfAm (>60 ml/min/1.73 sqM) Est GFR (CKD-EPI)NonAf (>60 ml/min/1.73 sqM) Glucose (74-99) mg/dL Calcium (8.4-10.2) mg/dL Magnesium (1.6-2.3) mg/dL Total Bilirubin (0.2-1.3) mg/dL AST (17-59) U/L ALT (4-49) U/L Alkaline Phosphatase (38-126) U/L Troponin I <0.012 (0.000-0.034) ng/mL Total Protein (6.3-8.2) g/dL Albumin (3.5-5.0) g/dL TSH (0.465-4.680) mIU/L Disposition Clinical Impression: Paroxysmal atrial fibrillation, Foreign body in eye Disposition: HOME SELF-CARE Condition: Good Instructions (If sedation given, give patient instructions): A-fib (Atrial Fibrillation) (ED) Is patient prescribed a controlled substance at d/c from ED?: No Referrals: Jason Diallo MD [STAFF PHYSICIAN] - 1-2 days Claire Haley MD [Primary Care Provider] - 1-2 days Mj Escobar MD [STAFF PHYSICIAN] - 1-2 days
[2024-02-07] MEDS: LORazepam 2 MG/ML INJ IV STA (15:21)
[2024-02-07 15:24] LABS: Basophils % (A) 0 %; Eosinophils # (A) 0.1 k/uL (0-0.7); Eosinophils % (A) 1 %; HCT 48.2 % (39.0-53.0); HGB 15.7 gm/dL (13.0-17.5); Lymphocytes # (A) 1.9 k/uL (1.0-4.8); Lymphocytes % (A) 20 %; MCH 30.6 pg (25.0-35.0); MCHC 32.5 g/dL (31.0-37.0); MCV 94.1 fL (80.0-100.0); Mean Platelet Volume 7.2; Monocytes # (A) 0.6 k/uL (0-1.0); Monocytes % (A) 7 %; Neutrophils # (A) 6.4 k/uL (1.3-7.7); Neutrophils % (A) 69 %; Platelet Count 355 k/uL (150-450); RBC 5.12 m/uL (4.30-5.90); RDW 13.7 % (11.5-15.5); WBC 9.2 k/uL (3.8-10.6)
[2024-02-07] MEDS: DILTIAZEM 125 MG in SODIUM CHLORIDE 0.9% 100 ML IV SCH (15:24)
[2024-02-07] MEDS: DILTIAZEM DRIP BOLUS FROM BAG 1 MG SOLN IV ONE (15:25)
[2024-02-07] MEDS: SODIUM CHLORIDE 0.9% 1,000 ML IV ONE ×3 (15:26→17:07)
[2024-02-07 15:37] LABS: ALT 44 U/L (4-49); AST 54 U/L (17-59); African American GFR (CKD) >90 (>60 ml/min/1.73 sqM); Albumin 5.2 g/dL (3.5-5.0); Alkaline Phosphatase 77 U/L (38-126); Anion Gap 10 mmol/L; Blood Urea Nitrogen 22 mg/dL (9-20); Calcium 9.6 mg/dL (8.4-10.2); Carbon Dioxide 22 mmol/L (22-30); Chloride 105 mmol/L (98-107); Glucose 132 mg/dL (74-99); Magnesium 1.9 mg/dL (1.6-2.3); Non-African American GFR(CKD) >90 (>60 ml/min/1.73 sqM); Potassium 4.2 mmol/L (3.5-5.1); Sodium 137 mmol/L (137-145); Total Bilirubin 0.8 mg/dL (0.2-1.3)
[2024-02-07 15:38] LABS: INR 0.9 (<1.2); Partial Thromboplastin Time 22.3 sec (22.0-30.0); Prothrombin Time 9.7 sec (10.0-12.5)
[2024-02-07 17:21] VITALS: TEMP 97.9
[2024-02-07] MEDS: TETRACAINE 0.5% OPHTH (PF) DROPS 4 ML BTL RIGHT EYE STA (17:34)
[2024-02-07] MEDS: FLUORESCEIN STRIPS 1 MG STRIP RIGHT EYE ONE (17:34)
[2024-02-07 17:35] VITALS: BP 130/75; PULSE 88; RESP 18
--- NOTE | 2024-02-07 18:19 | XR ---
EXAMINATION TYPE: XR chest 2V DATE OF EXAM: 02/07/2024 3:59 PM CLINICAL INDICATION:Male, 58 years old with history of dysrhythmia; [facility] COMPARISON: 01/09/2020 TECHNIQUE: XR chest 2V Frontal and lateral views of the chest. FINDINGS: Lungs/Pleura: There is no evidence of pleural effusion, focal consolidation, or pneumothorax. Pulmonary vascularity: Unremarkable. Heart/mediastinum: Cardiomediastinal silhouette is unremarkable. Musculoskeletal: No acute osseous pathology. IMPRESSION: No acute cardiopulmonary disease/process.
== END 2024-02-07 18:05 | disposition home or self-care (01) ==
LOC: EC 14:43
DX: T15.11XA Foreign body in conjunctival sac, right eye, initial encounter (principal); I48.0 Paroxysmal atrial fibrillation; Z88.1 Allergy status to other antibiotic agents; Z88.2 Allergy status to sulfonamides
CPT/HCPCS: 99285; 96374; 65235; 96361 ×2; 36415; 93005; 80053; 83735; 84443; 84484; 85025; 85610; 85730; 71046; J2060

== ENCOUNTER 2024-02-10 12:43 | Emergency (ER) | payer BC ==
[2024-02-10 12:52] VITALS: RESP 18
--- NOTE | 2024-02-10 13:12 | ED ---
General Adult HPI - General Chief complaint: Arrhythmia/Palpitations Stated complaint: poss Afib,HTN Time Seen by Provider: 02/10/24 12:50 Source: patient, RN notes reviewed, old records reviewed Mode of arrival: ambulatory Limitations: no limitations - History of Present Illness Initial comments: This is a 58-year-old male who presents to the emergency department with past medical history significant for hypertension. Patient is on losartan and Norv asc. Patient came in over the weekend he was in atrial fibrillation at 165 beats a minute patient states he had not had a previous history of this. Patient states since then he felt pretty good until today when his heart started racing again. Patient states he does not have an appointment with his primary or cardiology for a day or 2 so he decided to come to the emergency department because of the elevated heart rate. Patient also states his blood pressure seems to be fluctuating today. - Related Data Home Medications Medication Instructions Recorded Confirmed ALPRAZolam [Xanax] 0.5 mg PO TID PRN 08/14/17 03/31/19 tadalafiL [Cialis] 5 mg PO ONCE PRN 08/14/17 03/31/19 Ciclesonide [Alvesco] 1 puff INHALATION RT-BID 03/31/19 03/31/19 Fluticasone Propionate [Flovent 1 puff INHALATION RT-DAILY 03/31/19 03/31/19 Hfa 44 mcg] Losartan Potassium 50 mg PO DAILY 03/31/19 03/31/19 Tiotropium [place] [Spiriva] 1 cap INHALATION RT-DAILY 03/31/19 03/31/19 amLODIPine [Norvasc] 5 mg PO DAILY 03/31/19 03/31/19 Previous Rx's Medication Instructions Recorded Metoprolol Succinate [Metoprolol 25 mg PO DAILY #30 tab 02/10/24 Succinate ER] Allergies Allergy/AdvReac Type Severity Reaction Status Date / Time doxycycline Allergy Rash/Hives Verified 02/07/24 14:50 sulfamethoxazole Allergy Rash/Hives Verified 02/10/24 12:52 [From Bactrim] trimethoprim [From Bactrim] Allergy Rash/Hives Verified 02/10/24 12:52 Review of Systems ROS Statement: Those systems with pertinent positive or pertinent negative responses have been documented in the HPI. ROS Other: All systems not noted in ROS Statement are negative. Past Medical History Past Medical History: Atrial Fibrillation, Asthma, GERD/Reflux Additional Past Medical History / Comment(s): "feels like things get stuck in my throat" History of Any Multi-Drug Resistant Organisms: None Reported Past Surgical History: Orthopedic Surgery Additional Past Surgical History / Comment(s): knee Past Anesthesia/Blood Transfusion Reactions: No Reported Reaction Past Psychological History: Anxiety Smoking Status: Never smoker Past Alcohol Use History: None Reported Past Drug Use History: None Reported - Past Family History Mother Family Medical History: No Reported History General Exam - General Exam Comments Initial Comments: GENERAL: Patient is well-developed and well-nourished. Patient is nontoxic and well- hydrated and is in mild distress. ENT: Neck is soft and supple. No significant lymphadenopathy is noted. Oropharynx is clear. Moist mucous membranes. Neck has full range of motion without eliciting any pain. EYES: The sclera were anicteric and conjunctiva were pink and moist. Extraocular movements were intact and pupils were equal round and reactive to light. Eyelids were unremarkable. PULMONARY: Unlabored respirations. Good breath sounds bilaterally. No audible rales rhonchi or wheezing was noted. CARDIOVASCULAR: There is a regular rate and rhythm without any murmurs gallops or rubs. ABDOMEN: Soft and nontender with normal bowel sounds. SKIN: Skin is clear with no lesions or rashes and otherwise unremarkable. NEUROLOGIC: Patient is alert and oriented x3. Cranial nerves II through XII are grossly intact. Motor and sensory are also intact. Normal speech, volume and content. Symmetrical smile. MUSCULOSKELETAL: Normal extremities with adequate strength and full range of motion. No lower extremity swelling or edema. No calf tenderness. LYMPHATICS: No significant lymphadenopathy is noted PSYCHIATRIC: Patient seems to be mildly anxious Limitations: no limitations Course Vital Signs 02/10/24 12:49 Temperature 98 F Pulse Rate 80 Respiratory 18 Rate Blood Pressure 146/90 O2 Sat by Pulse 98 Oximetry Medical Decision Making - Medical Decision Making EKG is interpreted by myself. EKG shows a sinus rhythm at 87 bpm parables under 51 QRS is 86 QT interval 337 QTc is 381. Patient's EKG shows no ST segment ovation or depression. Was pt. sent in by a medical professional or institution (, PA, TRIMMING ASSEMBLER, urgent care, hospital, or long term...) When possible be specific @ -No Did you speak to anyone other than the patient for history (EMS, parent, family, police, friend...)? What history was obtained from this source @ -No Did you review nursing and triage notes (agree or disagree)? Why? @ -I reviewed and agree with nursing and triage notes Were old charts reviewed (outside hosp., previous admission, EMS record, old EKG, old radiological studies, urgent care reports/EKG's, long term records)? Report findings @ -I compared today's EKG to prior EKG today's EKG shows sinus rhythm where his prior EKG showed atrial fibrillation Differential Diagnosis (chest pain, altered mental status, abdominal pain women, abdominal pain men, vaginal bleeding, weakness, fever, dyspnea, syncope, headache, dizziness, GI bleed, back pain, seizure, CVA, palpatations, mental health, musculoskeletal)? @ -Differential Palpitations Ventricular arrhythmias, atrial arrhythmias, myocardial infarction, anemia, thyrotoxicosis, electrolyte imbalance, hypokalemia, pulmonary embolism, pulmonary disease, drugs, alcohol, anxiety, stress.... This is not meant to be an all-inclusive list. EKG interpreted by me (3pts min.). @ -As above X-rays interpreted by me (1pt min.). @ -Chest x-ray showed no acute abnormality CT interpreted by me (1pt min.). @ -None done U/S interpreted by me (1pt. min.). @ -None done What testing was considered but not performed or refused? (CT, X-rays, U/S, labs)? Why? @ -None What meds were considered but not given or refused? Why? @ -None Did you discuss the management of the patient with other professionals (professionals i.e. , PA, TRIMMING ASSEMBLER, lab, RT, psych nurse, social media community manager, adhesive primer, teacher, correction officer head, case consultant)? Give summary @ -I spoke with Dr. Haley and he will follow-up with the patient tomorrow and he wanted the patient to be placed on metoprolol Was smoking cessation discussed for >3mins.? @ -No Was critical care preformed (if so, how long)? @ -No Were there social determinants of health that impacted care today? How? (Homelessness, low income, unemployed, alcoholism, drug addiction, transportation, low edu. Level, literacy, decrease access to med. care, senior care, rehab)? @ -No Was there de-escalation of care discussed even if they declined (Discuss DNR or withdrawal of care, Hospice)? DNR status @ -No What co-morbidities impacted this encounter? (DM, HTN, Smoking, COPD, CAD, Cancer, CVA, ARF, Chemo, Hep., AIDS, mental health diagnosis, sleep apnea, morbid obesity)? @ -None Was patient admitted / discharged? Hospital course, mention meds given and route, prescriptions, significant lab abnormalities, going to OR and other pertinent info. @ -Patient was given metoprolol in the hospital he remained in sinus rhythm and he will follow-up tomorrow with Dr. Haley and be on metoprolol Undiagnosed new problem with uncertain prognosis? @ -No Drug Therapy requiring intensive monitoring for toxicity (Heparin, Nitro, Insulin, Cardizem)? @ -No Were any procedures done? @ -No Diagnosis/symptom? @ -New onset A-fib Acute, or Chronic, or Acute on Chronic? @ -Acute Uncomplicated (without systemic symptoms) or Complicated (systemic symptoms)? @ -Complicated Side effects of treatment? @ -No Exacerbation, Progression, or Severe Exacerbation? @ -No Poses a threat to life or bodily function? How? (Chest pain, [place], [place], pneumonia, PE, COPD, DKA, ARF, appy, cholecystitis, CVA, Diverticulitis, Homicidal, Suicidal, threat to staff... and all critical care pts) @ -No - Lab Data Result diagrams: 02/10/24 13:21 02/10/24 13:21 Lab Results 02/10/24 02/10/24 02/10/24 Range/Units 13:21 13:21 13:21 WBC 7.6 (3.8-10.6) k/uL RBC 4.78 (4.30-5.90) m/uL Hgb 14.9 (13.0-17.5) gm/dL Hct 46.6 (39.0-53.0) % MCV 97.4 (80.0-100.0) fL MCH 31.2 (25.0-35.0) pg MCHC 32.0 (31.0-37.0) g/dL RDW 13.3 (11.5-15.5) % Plt Count 329 (150-450) k/uL MPV 7.1 Neutrophils % 74 % Lymphocytes % 17 % Monocytes % 6 % Eosinophils % 1 % Basophils % 0 % Neutrophils # 5.6 (1.3-7.7) k/uL Lymphocytes # 1.3 (1.0-4.8) k/uL Monocytes # 0.5 (0-1.0) k/uL Eosinophils # 0.1 (0-0.7) k/uL Basophils # 0.0 (0-0.2) k/uL PT 10.1 (10.0-12.5) sec INR 0.9 (<1.2) APTT 23.8 (22.0-30.0) sec Sodium 137 (137-145) mmol/L Potassium 4.5 (3.5-5.1) mmol/L Chloride 107 (98-107) mmol/L Carbon Dioxide 24 (22-30) mmol/L Anion Gap 6 mmol/L BUN 13 (9-20) mg/dL Creatinine 0.86 (0.66-1.25) mg/dL Est GFR (CKD-EPI)AfAm >90 (>60 ml/min/1.73 sqM) Est GFR (CKD-EPI)NonAf >90 (>60 ml/min/1.73 sqM) Glucose 101 H (74-99) mg/dL Calcium 9.4 (8.4-10.2) mg/dL Magnesium 2.1 (1.6-2.3) mg/dL Total Bilirubin 0.6 (0.2-1.3) mg/dL AST 38 (17-59) U/L ALT 41 (4-49) U/L Alkaline Phosphatase 67 (38-126) U/L Troponin I (0.000-0.034) ng/mL Total Protein 7.2 (6.3-8.2) g/dL Albumin 4.8 (3.5-5.0) g/dL Free T4 1.10 (0.78-2.19) ng/dL 02/10/24 Range/Units 13:21 WBC (3.8-10.6) k/uL RBC (4.30-5.90) m/uL Hgb (13.0-17.5) gm/dL Hct (39.0-53.0) % MCV (80.0-100.0) fL MCH (25.0-35.0) pg MCHC (31.0-37.0) g/dL RDW (11.5-15.5) % Plt Count (150-450) k/uL MPV Neutrophils % % Lymphocytes % % Monocytes % % Eosinophils % % Basophils % % Neutrophils # (1.3-7.7) k/uL Lymphocytes # (1.0-4.8) k/uL Monocytes # (0-1.0) k/uL Eosinophils # (0-0.7) k/uL Basophils # (0-0.2) k/uL PT (10.0-12.5) sec INR (<1.2) APTT (22.0-30.0) sec Sodium (137-145) mmol/L Potassium (3.5-5.1) mmol/L Chloride (98-107) mmol/L Carbon Dioxide (22-30) mmol/L Anion Gap mmol/L BUN (9-20) mg/dL Creatinine (0.66-1.25) mg/dL Est GFR (CKD-EPI)AfAm (>60 ml/min/1.73 sqM) Est GFR (CKD-EPI)NonAf (>60 ml/min/1.73 sqM) Glucose (74-99) mg/dL Calcium (8.4-10.2) mg/dL Magnesium (1.6-2.3) mg/dL Total Bilirubin (0.2-1.3) mg/dL AST (17-59) U/L ALT (4-49) U/L Alkaline Phosphatase (38-126) U/L Troponin I <0.012 (0.000-0.034) ng/mL Total Protein (6.3-8.2) g/dL Albumin (3.5-5.0) g/dL Free T4 (0.78-2.19) ng/dL Disposition Clinical Impression: Atrial fibrillation Disposition: HOME SELF-CARE Condition: Good Instructions (If sedation given, give patient instructions): A-fib (Atrial Fibrillation) (ED) Prescriptions: Metoprolol Succinate [Metoprolol Succinate ER] 25 mg PO DAILY #30 tab Is patient prescribed a controlled substance at d/c from ED?: No Referrals: Claire Haley MD [Primary Care Provider] - 1-2 days Time of Disposition: 14:52
[2024-02-10 13:34] LABS: Basophils % (A) 0 %; Eosinophils # (A) 0.1 k/uL (0-0.7); Eosinophils % (A) 1 %; HCT 46.6 % (39.0-53.0); HGB 14.9 gm/dL (13.0-17.5); Lymphocytes # (A) 1.3 k/uL (1.0-4.8); Lymphocytes % (A) 17 %; MCH 31.2 pg (25.0-35.0); MCV 97.4 fL (80.0-100.0); Mean Platelet Volume 7.1; Monocytes # (A) 0.5 k/uL (0-1.0); Monocytes % (A) 6 %; Neutrophils # (A) 5.6 k/uL (1.3-7.7); Neutrophils % (A) 74 %; Platelet Count 329 k/uL (150-450); RBC 4.78 m/uL (4.30-5.90); RDW 13.3 % (11.5-15.5); WBC 7.6 k/uL (3.8-10.6)
[2024-02-10 13:42] LABS: ALT 41 U/L (4-49); AST 38 U/L (17-59); African American GFR (CKD) >90 (>60 ml/min/1.73 sqM); Albumin 4.8 g/dL (3.5-5.0); Alkaline Phosphatase 67 U/L (38-126); Anion Gap 6 mmol/L; Blood Urea Nitrogen 13 mg/dL (9-20); Calcium 9.4 mg/dL (8.4-10.2); Carbon Dioxide 24 mmol/L (22-30); Chloride 107 mmol/L (98-107); Glucose 101 mg/dL (74-99); Magnesium 2.1 mg/dL (1.6-2.3); Non-African American GFR(CKD) >90 (>60 ml/min/1.73 sqM); Potassium 4.5 mmol/L (3.5-5.1); Sodium 137 mmol/L (137-145); Total Bilirubin 0.6 mg/dL (0.2-1.3); Total Protein 7.2 g/dL (6.3-8.2)
[2024-02-10 13:53] LABS: INR 0.9 (<1.2); Partial Thromboplastin Time 23.8 sec (22.0-30.0); Prothrombin Time 10.1 sec (10.0-12.5)
[2024-02-10] MEDS: METOPROLOL SUCCINATE (ER) 25 MG TAB.ER.24H PO STA (15:40)
[2024-02-10 15:43] VITALS: BP 127/87; PULSE 72; TEMP 97.5
== END 2024-02-10 15:47 | disposition home or self-care (01) ==
LOC: EC 12:43
DX: I48.91 Unspecified atrial fibrillation (principal); Z88.2 Allergy status to sulfonamides; Z88.1 Allergy status to other antibiotic agents; Z88.8 Allergy status to other drugs, medicaments and biological substances
CPT/HCPCS: 36415; 71046; 80053; 83735; 84439; 84484; 85025; 85610; 85730; 93005; 99285

== ENCOUNTER 2024-03-13 16:23 | Emergency (ER) | payer BC ==
[2024-03-13 16:29] VITALS: TEMP 97.8
--- NOTE | 2024-03-13 16:51 | ED ---
Wound/Laceration HPI - General Chief Complaint: Wound/Laceration Stated Complaint: foot injury Time Seen by Provider: 03/13/24 16:40 Source: patient, RN notes reviewed Mode of arrival: ambulatory Limitations: no limitations - History of Present Illness Initial Comments: 58-year-old male presenting with laceration on right foot x 1 hour ago. States he was doing yard work outside and accidentally stepped on the metal edge of a garden bed. He takes a baby aspirin daily. Denies other blood thinners. Denies other injuries. Last tetanus was 2015. - Related Data Home Medications Medication Instructions Recorded Confirmed ALPRAZolam [Xanax] 0.5 mg PO TID PRN 08/14/17 03/31/19 tadalafiL [Cialis] 5 mg PO ONCE PRN 08/14/17 03/31/19 Ciclesonide [Alvesco] 1 puff INHALATION RT-BID 03/31/19 03/31/19 Fluticasone Propionate [Flovent 1 puff INHALATION RT-DAILY 03/31/19 03/31/19 Hfa 44 mcg] Losartan Potassium 50 mg PO DAILY 03/31/19 03/31/19 Tiotropium [place] [Spiriva] 1 cap INHALATION RT-DAILY 03/31/19 03/31/19 amLODIPine [Norvasc] 5 mg PO DAILY 03/31/19 03/31/19 Previous Rx's Medication Instructions Recorded Metoprolol Succinate [Metoprolol 25 mg PO DAILY #30 tab 02/10/24 Succinate ER] Cephalexin [Keflex] 500 mg PO Q12HR 5 Days #10 cap 03/13/24 Allergies Allergy/AdvReac Type Severity Reaction Status Date / Time doxycycline Allergy Rash/Hives Verified 03/13/24 16:29 sulfamethoxazole Allergy Rash/Hives Verified 03/13/24 16:29 [From Bactrim] trimethoprim [From Bactrim] Allergy Rash/Hives Verified 03/13/24 16:29 Review of Systems ROS Statement: Those systems with pertinent positive or pertinent negative responses have been documented in the HPI. ROS Other: All systems not noted in ROS Statement are negative. Past Medical History Past Medical History: Atrial Fibrillation, Asthma, GERD/Reflux Additional Past Medical History / Comment(s): "feels like things get stuck in my throat" History of Any Multi-Drug Resistant Organisms: None Reported Past Surgical History: Orthopedic Surgery Additional Past Surgical History / Comment(s): knee Past Anesthesia/Blood Transfusion Reactions: No Reported Reaction Past Psychological History: Anxiety Smoking Status: Never smoker Past Alcohol Use History: Occasional Past Drug Use History: None Reported - Past Family History Mother Family Medical History: No Reported History General Exam Limitations: no limitations General appearance: alert, in no apparent distress Head exam: Present: atraumatic, normocephalic, normal inspection Right Ankle exam: Present: normal inspection, full ROM. Absent: tenderness, swelling Foot/Toe exam: Present: full ROM, laceration (2 cm laceration present on ventral aspect of right foot. Minimal active bleeding.). Absent: tenderness, swelling Neurovascular tendon exam: Present: no vascular compromise. Absent: pulse deficit, abnormal cap refill, sensory deficit Course Vital Signs 03/13/24 16:27 Temperature 97.8 F Pulse Rate 63 Respiratory 20 Rate Blood Pressure 176/84 O2 Sat by Pulse 99 Oximetry Procedures - Laceration Laceration #1 Consent Obtained: verbal consent Indication: laceration Site: foot Size (cm): 2 Description: linear Depth: simple, single layer Anesthetic Used: lidocaine 1%, without epi Anesthesia Technique: local infiltration Amount (mls): 3 Pre-repair: wound explored, irrigated extensively, deep structures intact Type of Sutures: nylon Size of Sutures: 4-0 Number of Sutures: 3 Patient Tolerated Procedure: well, no complications Additional Comments: Neurovascularly intact status post procedure Medical Decision Making - Medical Decision Making Was pt. sent in by a medical professional or institution (, PA, EXHIBIT PREPARATOR, urgent care, hospital, or group home...) When possible be specific @ -No Did you speak to anyone other than the patient for history (EMS, parent, family, police, friend...)? What history was obtained from this source @ -No Did you review nursing and triage notes (agree or disagree)? Why? @ -I reviewed and agree with nursing and triage notes Were old charts reviewed (outside hosp., previous admission, EMS record, old EKG, old radiological studies, urgent care reports/EKG's, group home records)? Report findings @ -No old charts were reviewed Differential Diagnosis (chest pain, altered mental status, abdominal pain women, abdominal pain men, vaginal bleeding, weakness, fever, dyspnea, syncope, headache, dizziness, GI bleed, back pain, seizure, CVA, palpatations, mental health, musculoskeletal)? @ -Differential Musculoskeletal Muscular strain, contusion, ligament sprain, fracture, arthritis, septic arthritis, bursitis, cellulitis, muscle spasm, nerve compression, DVT, arterial occlusion, herpes zoster, electrolyte abnormality, tumor.... This is not meant to be in all inclusive list EKG interpreted by me (3pts min.). @ -None X-rays interpreted by me (1pt min.). @ -None done CT interpreted by me (1pt min.). @ -None done U/S interpreted by me (1pt. min.). @ -None done What testing was considered but not performed or refused? (CT, X-rays, U/S, labs)? Why? @ -Imaging considered but not performed due to low suspicion for fracture What meds were considered but not given or refused? Why? @ -None Did you discuss the management of the patient with other professionals (professionals i.e. , PA, EXHIBIT PREPARATOR, lab, RT, psych nurse, manager social responsibility, priming machine operator, teacher, ship's officer, returned case inspector)? Give summary @ -No Was smoking cessation discussed for >3mins.? @ -No Was critical care preformed (if so, how long)? @ -No Were there social determinants of health that impacted care today? How? (Homelessness, low income, unemployed, alcoholism, drug addiction, transportation, low edu. Level, literacy, decrease access to med. care, halfway, rehab)? @ -No Was there de-escalation of care discussed even if they declined (Discuss DNR or withdrawal of care, Hospice)? DNR status @ -No What co-morbidities impacted this encounter? (DM, HTN, Smoking, COPD, CAD, [place] ncer, CVA, ARF, Chemo, Hep., AIDS, mental health diagnosis, sleep apnea, morbid obesity)? @ -None Was patient admitted / discharged? Hospital course, mention meds given and route, prescriptions, significant lab abnormalities, going to OR and other pertinent info. @ -Patient was discharged. Patient was seen and evaluated for right foot laceration prior to arrival. Neurovascularly intact. Wound was thoroughly irrigated and 3 sutures were placed with no complications. He is neurovascularly intact status post procedure. Tetanus was updated. Wound care discussed. Strict return parameters discussed. Prescribed Keflex for bacterial prophylaxis. Advised to follow-up in 7 days for suture removal. Patient shows understanding and agrees to plan. Case was discussed with my attending Dr. Diann oh. Patient discharged in stable condition. Undiagnosed new problem with uncertain prognosis? @ -No Drug Therapy requiring intensive monitoring for toxicity (Heparin, Nitro, Insulin, Cardizem)? @ -No Were any procedures done? @ -No Diagnosis/symptom? @ -Right foot laceration Acute, or Chronic, or Acute on Chronic? @ -Acute Uncomplicated (without systemic symptoms) or Complicated (systemic symptoms)? @ -Uncomplicated Side effects of treatment? @ -No Exacerbation, Progression, or Severe Exacerbation? @ -No Poses a threat to life or bodily function? How? (Chest pain, [place], [place], pneumonia, PE, COPD, DKA, ARF, appy, cholecystitis, CVA, Diverticulitis, Homicidal, Suicidal, threat to staff... and all critical care pts) @ -No Disposition Clinical Impression: Laceration of right foot Disposition: HOME SELF-CARE Condition: Stable Instructions (If sedation given, give patient instructions): Care For Your Stitches (ED), Laceration (ED) Additional Instructions: Follow-up in 7 days for suture removal. Keep wound dry for 24 hours, then you may gently wash area with antibacterial soap and water. You may apply bacitracin or Neosporin twice daily. Take Keflex as prescribed. Please return to the Emergency Department if symptoms worsen or any other concerns. Prescriptions: Cephalexin [Keflex] 500 mg PO Q12HR 5 Days #10 cap Is patient prescribed a controlled substance at d/c from ED?: No Referrals: Claire Haley MD [Primary Care Provider] - 1-2 days Time of Disposition: 18:32
[2024-03-13] MEDS: DIPH,PERTUS(ACELL)TETVAC-LF 0.5 ML VIAL IM ONE (17:13)
[2024-03-13] MEDS: LIDOCAINE 1% INJ 10MG/ML (20 ML MDV) SQ ONE (17:15)
[2024-03-13 19:24] VITALS: BP 174/92; PULSE 73; RESP 18
== END 2024-03-13 19:17 | disposition home or self-care (01) ==
LOC: EC 16:23
DX: S91.311A Laceration without foreign body, right foot, initial encounter (principal); Z88.1 Allergy status to other antibiotic agents; Z88.2 Allergy status to sulfonamides; Z23 Encounter for immunization; W26.8XXA Contact with other sharp object(s), not elsewhere classified, initial encounter; Y92.096 Garden or yard of other non-institutional residence as the place of occurrence of the external cause; Y99.0 Civilian activity done for income or pay
CPT/HCPCS: 90715; 12001; 90471; 99282; J2001

== ENCOUNTER 2024-04-16 01:32 | Inpatient (IN) | payer BC ==
[2024-04-16] MEDS ORDERED: DILTIAZEM 5 MG/ML 5 ML VIAL ONE (23:10)
[2024-04-16] MEDS ORDERED: SODIUM CHLORIDE 0.9% 100 ML BAG IV ONE (23:10)
[2024-04-16] MEDS ORDERED: DILTIAZEM 125 MG/25 ML VIAL IV ONE (23:10)
[2024-04-17] MEDS ORDERED: HEPARIN SODIUM 1,000 UN/ML (10ML VL) ONE (01:49)
[2024-04-17] MEDS ORDERED: HEPARIN SOD,PORK IN 0.45% NACL 250 ML IV ONE (01:49)
[2024-04-17] MEDS ORDERED: ASPIRIN 325 MG TAB ONE (06:33)
[2024-04-17] MEDS ORDERED: MORPHINE SULFATE 4 MG/ML SYRINGE ONE (06:34)
[2024-04-17] MEDS ORDERED: MAG HYDROX/AL HYDROX/SIMETH 30 ML CUP ONE (07:25)
[2024-04-17] MEDS ORDERED: HYOSCYAMINE ELIXIR 250 MCG/10 ML BTL ONE (07:25)
[2024-04-17] MEDS ORDERED: LIDOCAINE VISCOUS 2% 15 ML CUP ONE (07:26)
[2024-04-17] MEDS ORDERED: FLECAINIDE 50 MG TAB ONE (09:53)
[2024-04-17] MEDS ORDERED: DILTIAZEM CD 120 MG CAP.ER.24H PO ONE (09:53)
[2024-04-17] MEDS ORDERED: DILTIAZEM ORAL 30 MG TAB ONE (10:02)
--- NOTE | 2024-05-27 14:49 | HP ---
HISTORY AND PHYSICAL The patient was seen in the ER, room #1. CHIEF COMPLAINT: "My heart is beating fast." HISTORY OF PRESENT ILLNESS: This is a 58-year-old male with a previous medical history significant for hypertension and hypertensive cardiovascular disease, history of hyperlipidemia, allergic rhinitis, paroxysmal atrial fibrillation that was diagnosed few months back, has been under the care of Dr. Marti that he saw first on March 02, 2024, and he was scheduled to go for 24 hours event monitor as well as echocardiogram as an outpatient, the patient stated that he was in usual state of health until yesterday when he was vacuuming the floor and all of a sudden felt that his heart was beating fast. He was feeling a bit weak along with diaphoresis, he ended up coming to the emergency department for evaluation. He was found to be in atrial fibrillation with rapid ventricular response, initially was started on the Cardizem drip and heparin drip, he was seen in consultation by Cardiology. The patient was already seen by Dr. Joaquin in the emergency department. He was taken off heparin drip, he was taken off Cardizem drip, he was started on Cardizem 30 mg orally 3 times everyday, he was taken off amlodipine and he was kept on Losartan 50 mg orally once everyday, he was also started on flecainide 50 mg orally twice everyday. He was instructed to take a full aspirin 325 mg orally once everyday, and he was asked to follow up with Dr. Marti as an outpatient as scheduled. The patient was also asked to follow up with me as an outpatient 1 week from now. The patient's atrial fibrillation did convert to sinus rhythm in the emergency department, and he was feeling much better, therefore he was discharged from the emergency department. PAST MEDICAL HISTORY: 1. Hypertension and hypertensive cardiovascular disease. 2. Hyperlipidemia. 3. Osteoarthritis. 4. Mild persistent asthma. 5. Allergic rhinitis. 6. Paroxysmal atrial fibrillation. 7. Chronic alcohol use and dependence. PAST SURGICAL HISTORY: 1. Left knee surgery in 2016. 2. Last colonoscopy in 2016. MEDICATION: He is currently on the following medications: 1. Spiriva Respimat 1.25 mcg 2 puffs inhalation 2 times everyday. 2. Metoprolol succinate 25 mg 1 capsule orally once everyday. 3. Nasal saline spray 0.65%, two sprays in each nostril, 3 times everyday. 4. Kalani 180 mg orally once everyday. 5. Flonase nasal spray 50 mcg, 1 spray in each nostril twice everyday. 6. Vitamin C 500 mg once everyday. 7. Vitamin D3 1000 unit once everyday. 8. Montelukast 10 mg once at bedtime. 9. Tadalafil 5 mg orally once everyday as needed. 10.Losartan 50 mg orally once everyday. 11.Amlodipine 5 mg orally once everyday. ALLERGIES: The patient is allergic to doxycycline which causes rash. SOCIAL HISTORY: The patient used to smoke about a pack everyday, but he quit more than 20 years ago, he drinks on a regular basis. He had a bottle of red wine just past Thursday. He was advised against alcohol use and abuse. The patient denies any drug use or abuse. He lives at home with his kids. FAMILY HISTORY: Father is alive, 84-year-old with history of hypertension and hyperlipidemia. Mother is 83-year-old with history with hyperlipidemia. The patient has 1 sister who was healthy, one son who was healthy, and one daughter who was healthy. REVIEW OF SYSTEMS: CONSTITUTIONAL: The patient denies any fever or chills at this time. He denies any generalized weakness. HEENT: He denies any sore throat. He denies any blurred vision. He denies any hearing difficulties. RESPIRATORY: The patient denies any coughing or hemoptysis. He denies any shortness of breath. He denies any pleurisy. CARDIOVASCULAR: The patient denies any chest pain. He does complain of palpitation. He denies any orthopnea, PND, edema. He denies any nocturia. GASTROINTESTINAL: The patient denies any abdominal pain. He does complain of significant heartburn. He denies any constipation or diarrhea. He denies any nausea or vomiting. No denies any hematemesis or hematochezia. GENITOURINARY: He denies any dysuria or hematuria. He does complain of frequent urination. MUSCULOSKELETAL: The patient denies any generalized weakness, he denies any unusual symptoms beside osteoarthritic changes. INTEGUMENTARY: The patient denies any skin rash. He denies any itching. He denies any rash. NEUROLOGICAL: The patient denies any dizziness. He denies any syncope. He denies any seizure. ENDOCRINE: He denies any abnormal blood sugar. PSYCHIATRIC: The patient does appear to be somewhat anxious, but he denies any actual anxiety or depression. PHYSICAL EXAMINATION: GENERAL: This is a 58-year-old gentleman lying down on bed in no apparent distress. VITAL SIGNS: As follows: Temperature 98.5, blood pressure is 129/82, respiration is 18, oxygenation is 98% on room air, heart rate is about 95. HEENT: Examination of the head, eyes, ears, nose, and throat, head is atraumatic, normocephalic. Pupils were equal, round, reactive to light and accommodation. Extraocular muscle movements are intact. NECK: Supple. No JVP. No carotid bruits. No lymphadenopathy. CHEST: Decreased breath sounds at the bases. Few rhonchi. No expiratory wheezes. No chest wall tenderness. No intercostal retractions. HEART: First heart sound is depressed. Second heart sound is normal. There is systolic ejection murmur, 2/6 located in the left sternal border. ABDOMEN: Soft, nontender, nondistended. Positive bowel sounds. No hepatosplenomegaly. EXTREMITIES: No edema. No calf tenderness. Dorsalis pedis +2 bilaterally. NEUROLOGIC: Awake, alert, and oriented x3. Cranial nerves II through XII appeared to be grossly intact, muscle power 5/5 in the upper and lower extremities bilaterally. Babinski's were flexor bilaterally. SKIN: No skin rash, there is minimal calcification to the vein in the left upper extremity. ASSESSMENT AND PLAN: 1. Paroxysmal atrial fibrillation. The patient was converted to normal sinus rhythm. Continue flecainide 50 mg orally twice everyday. Continue Cardizem 30 mg orally two times everyday. Discontinue amlodipine. Start the patient on full aspirin 325 mg once everyday, follow up with Dr. Marti as an outpatient in a week from now as the patient was scheduled to go for a Holter monitor 24 hours as well as echo and stress test. 2. Hypertension and hypertensive cardiovascular disease. Continue the patient on losartan 50 mg orally once everyday. Discontinue amlodipine. Continue Cardizem 30 mg orally 2 times everyday. Monitor the patient's blood pressure very closely. 3. Mixed hyperlipidemia. The patient was supposed to be on the statin, unfortunately he has not taken any statin at this time. His LDL cholesterol is quite elevated. 4. Allergic rhinitis. Continue the patient on Kalani 180 mg once everyday. Continue Flonase nasal spray one spray at each nostril twice everyday. Continue nasal saline spray as well, two sprays in each nostril three times everyday. Avoid allergens if possible. 5. Mild persistent asthma. Continue Spiriva Respimat two puffs inhalation twice everyday. Continue the patient on montelukast 10 mg orally once everyday. 6. Osteoarthritis. Continue the patient on Tylenol. Avoid ibuprofen at this time. 7. Superficial thrombophlebitis of the left upper extremity has been chronic, seems to be stable at this time. 8. Deep venous thrombosis, not needed. 9. GI prophylaxis not needed. The patient is medically stable to be discharged home today if okay with Cardiology. Follow up with me as an outpatient in 1 week, follow up with Cardiology, Dr. Marti as scheduled. MMODL / IJN: [id number] /
--- NOTE | 2024-05-27 15:52 | XR ---
Patient Luis Alberto, [facility] ID [id number] Order # EXAMINATION TYPE: XR chest 1V DATE OF EXAM: 04/17/2024 COMPARISON: No comparison available on downtime PACS. INDICATION: A. Fib TECHNIQUE: Single frontal view of the chest is obtained. FINDINGS: The heart size is normal. The pulmonary vasculature is normal. The lungs are clear. IMPRESSION: 1. No acute pulmonary process.
== END 2024-04-17 10:30 | disposition home or self-care (01) | DRG 309 ==
LOC: UNDOADMIN 01:32 → 3SCARD 01:32 → UNDOADMIN 04-17 01:32 → UNDODISIN 04-17 10:30
PROVIDERS: ADMIT Internal Medicine; ATTEND Internal Medicine
DX: I48.0 Paroxysmal atrial fibrillation (principal); N17.9 Acute kidney failure, unspecified; I10 Essential (primary) hypertension; J45.909 Unspecified asthma, uncomplicated; F10.10 Alcohol abuse, uncomplicated; E78.5 Hyperlipidemia, unspecified; K21.9 Gastro-esophageal reflux disease without esophagitis; R07.89 Other chest pain; Z88.0 Allergy status to penicillin
CPT/HCPCS: 71045; 93005; 96374; 96375; 99291

== ENCOUNTER → 2025-03-02 | Outpatient (CLI) | payer BC ==
[2025-03-02 07:54] LABS: INR 1.0 (<1.2); Partial Thromboplastin Time 25.0 sec (22.0-30.0); Prothrombin Time 11.5 sec (10.0-12.5)
[2025-03-02 11:49] LABS: HCT 44.1 % (39.6-50.0); HGB 14.5 g/dL (13.0-17.0); MCH 30.2 pg (27.0-32.0); MCHC 32.9 g/dL (32.0-37.0); MCV 91.9 FL (80.0-97.0); NRBC Per 100 WBC 0 X 10*3/uL (0.00-0.01); Platelet Count 328 X 10*3/uL (140-440); RBC 4.80 X 10*6/uL (4.40-5.60); RDW 13.5 % (11.5-14.5); WBC 7.75 X 10*3/uL (4.50-10.00)
[2025-03-02 12:51] LABS: Anion Gap 10.40 mmol/L (4.00-12.00); BUN/Creat Ratio 23.60 Ratio (12.00-20.00); Blood Urea Nitrogen 23.6 mg/dL (9.0-27.0); Calcium 9.2 mg/dL (8.7-10.3); Carbon Dioxide 26.6 mmol/L (21.6-31.8); Chloride 105 mmol/L (96-109); Glucose 99 mg/dL (70-110); Potassium 4.4 mmol/L (3.5-5.5); Sodium 142 mmol/L (135-145)
== END | disposition home or self-care (01) ==
LOC: LABWHC1 06:57
PROVIDERS: ATTEND Internal Medicine
DX: I48.0 Paroxysmal atrial fibrillation (principal)
CPT/HCPCS: 36415; 80048; 85027; 85610; 85730